=== PATIENT | male | born 1965 | race Caucasian/White ===

== ENCOUNTER 2020-03-30 07:57 | Emergency (ER) | payer OTHER ==
[~2020-03-30] VITALS: Ht 182.9 cm; Wt 84.0 kg
[2020-03-30] MEDS ORDERED: DIPH,PERTUSS(ACELL),TET VAC/PF 0.5 ML SYRINGE. VAX IM ONE (08:15)
--- NOTE | 2020-03-30 08:34 | RAD ---
CLAVICLE LEFT, CHEST AP ONLY 03/30/2020 7:59 AM INDICATION: Fall, left clavicle injury. Left sided chest pain COMPARISON: None available TECHNIQUE: Portable frontal view of the chest is provided. 2 views of the left clavicle are provided. FINDINGS: The cardiomediastinal silhouette is within normal limits. Lungs are clear. There are no significant pleural effusions. There is no pulmonary vascular congestion. No pneumothorax. There is a vertically oriented fracture through the junction of the mid and distal one third of the left clavicle as well as an obliquely oriented fracture through the distal one third of the left clavicle with resultant kidney 3 separate fragments. Mild overriding of the fracture fragments is noted. There is at least 2 shaft width displacement of the 5.2 cm fragment between the medial and distal one third of the clavicle. No disruption of the acromioclavicular joint. No adjacent rib fractures visualized. Remaining scapula appears intact. IMPRESSION: Comminuted fracture involving the mid to distal one thirds of the left clavicle with associated displacement and overriding. There is no acute cardiopulmonary process. Electronically signed by: Martha Bradshaw MD (03/30/2020 8:31 AM) [facility]
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
[2020-03-30] MEDS ORDERED: ONDANSETRON PF 4 MG/2 ML VIAL. IVP ONE (09:00)
[2020-03-30] MEDS ORDERED: HYDR-3165 PO (10:24)
[2020-03-30 10:45] VITALS: BP 138/92
[2020-03-30] MEDS ORDERED: HYDROcodone/APAP 5/325MG 1 TAB TABLET ONE (10:46)
[2020-03-30] MEDS ORDERED: HYDROcodone/APAP 5/325MG 1 TAB TABLET PO ONE (11:00)
== END 2020-03-30 11:00 | disposition home or self-care (01) ==
LOC: ER 07:57
DX: S42.032A Displaced fracture of lateral end of left clavicle, initial encounter for closed fracture (principal); S80.212A Abrasion, left knee, initial encounter; W17.89XA Other fall from one level to another, initial encounter; Y93.39 Activity, other involving climbing, rappelling and jumping off; Y92.89 Other specified places as the place of occurrence of the external cause; Y99.8 Other external cause status
CPT/HCPCS: 71045; 73000; 90471; 90715; 96374; 96375; 99284; J2405; J3010